=== PATIENT | male | born 2000 | race Caucasian/White ===

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

== ENCOUNTER 2021-06-03 13:49 | Emergency (ER) | payer OTHER | END 2021-06-03 19:16 | disposition home or self-care (01) | LOC: JVIRT 13:49 | DX: R09.81 Nasal congestion (principal); Z20.822 Contact with and (suspected) exposure to COVID-19 | CPT/HCPCS: C9803; Q3014-GT; U0003; U0005 ==